=== PATIENT | female | born 1940 ===

== ENCOUNTER 2017-09-16 06:51 | Day surgery (SDC) | payer MEDICARE, OTHER ==
[2016-08-27 10:35] VITALS: BMI 32.8
[2017-09-16 07:53] VITALS: TEMP 97
--- NOTE | 2017-09-16 08:20 | CP.SDSHP ---
Same Day Surgery H & P - History Proposed Procedure: COLONSCOPY Pre-Op Diagnosis: SEE NOTES - Previous Medical/Surgical History Cardiac: Hypertension, ASHD/CAD Endocrine/Metabolic: Diabetes, Other Neuro: Backaches Misc: Other Pain: 4.Moderate Pain - Allergies Allergies: Allergies No Known Allergies Allergy (Verified 09/16/17 07:22) - Physical Exam General Appearance: N Vital Signs: Vital Signs 09/16/17 07:10 Temperature 97 F L Pulse Rate 70 Respiratory 20 Rate Blood Pressure 158/78 H O2 Sat by Pulse 97 Oximetry Mental Status: Alert & Oriented x3 Neuro: WNL Heart: Other Lungs: WNL GI: Other - {Optional Preform as Required} Breast: WNL Abdomen: Other Rectal: Other Integument: WNL : WNL ENT: WNL - Impression Pt. Evaluated Today:Candidate for Anesthesia & Procedure: Yes - Date & Time Time: 08:20 Short Stay Discharge - Short Stay Discharge Admitting Diagnosis/Reason for Visit: DIARRHEA Disposition: HOME/ ROUTINE
[2017-09-16] MEDS ORDERED: Propofol 10 mg/ml Inj (20 ML) ONE (08:21)
[2017-09-16] MEDS ORDERED: Lactated Ringer's 500 ML IV SCH (08:30)
[2017-09-16] MEDS ORDERED: Ciprofloxacin 400mg/200ml D5W 400 MG/200 ML BAG IVPB STA (08:35)
[2017-09-16] MEDS ORDERED: Belladonna-Phenobarbital PO ONE (08:50)
[2017-09-16 08:51] VITALS: PULSE 62
[2017-09-16 11:22] VITALS: RESP 20; O2SAT 100
[2017-09-16 11:30] VITALS: BP 140/78
== END 2017-09-16 11:30 | disposition home or self-care (01) ==
LOC: C.ENDO 06:51
PROVIDERS: ATTEND Specialist
DX: K57.90 Diverticulosis of intestine, part unspecified, without perforation or abscess without bleeding (principal); K64.8 Other hemorrhoids
CPT/HCPCS: 45380; 82948; 88305; J0744; J2704; J3010; J7120

== ENCOUNTER 2018-11-13 08:21 | Day surgery (SDC) | payer MEDICARE, OTHER ==
[2018-11-13 09:12] VITALS: BMI 32.9
[2018-11-13] MEDS ORDERED: Propofol 10 mg/ml Inj (20 ML) ONE ×2 (09:55→09:56)
[2018-11-13] MEDS ORDERED: Midazolam 2 MG/2 ML VIAL ONE (09:56)
--- NOTE | 2018-11-13 10:08 | CP.SDSHP ---
Same Day Surgery H & P - History Proposed Procedure: COLONSCOPY Pre-Op Diagnosis: SEE NOTES - Previous Medical/Surgical History Cardiac: ASHD/CAD Endocrine/Metabolic: Diabetes Neuro: Backaches Misc: Other Pain: 4.Moderate Pain Previous Surgical History: COLON SX. /COLON CA - Allergies Allergies: Allergies No Known Allergies Allergy (Verified 11/13/18 09:12) - Physical Exam General Appearance: N Vital Signs: Vital Signs 11/13/18 08:54 Temperature 98.2 F Pulse Rate 78 Respiratory 16 Rate Blood Pressure 123/62 O2 Sat by Pulse 96 Oximetry Mental Status: Alert & Oriented x3 Neuro: WNL Heart: Other Lungs: WNL GI: Other - {Optional Preform as Required} Breast: WNL Abdomen: Other Rectal: Other Integument: WNL : WNL Ortho: Other ENT: WNL - Impression Pt. Evaluated Today:Candidate for Anesthesia & Procedure: Yes - Date & Time Time: 10:08 Short Stay Discharge - Short Stay Discharge Admitting Diagnosis/Reason for Visit: PERSONAL HISTORY OF MALIGNANT NEOPLASM OF LARGE IN Disposition: HOME/ ROUTINE
[2018-11-13] MEDS ORDERED: Lactated Ringer's 1,000 ML IV ONE (10:10)
[2018-11-13] MEDS ORDERED: Belladonna-Phenobarbital PO STA (10:11)
[2018-11-13 10:38] VITALS: TEMP 98.4
[2018-11-13 11:05] VITALS: O2SAT 97
[2018-11-13] MEDS ORDERED: Belladonna-Phenobarbital PO ONE (11:30)
[2018-11-13 13:04] VITALS: BP 100/55; PULSE 78; RESP 21
== END 2018-11-13 13:00 | disposition home or self-care (01) ==
LOC: C.ENDO 08:21
PROVIDERS: ATTEND Specialist
DX: Z12.11 Encounter for screening for malignant neoplasm of colon (principal); Z85.038 Personal history of other malignant neoplasm of large intestine; D12.2 Benign neoplasm of ascending colon; D12.5 Benign neoplasm of sigmoid colon; K57.30 Diverticulosis of large intestine without perforation or abscess without bleeding; K64.9 Unspecified hemorrhoids
CPT/HCPCS: 45380; 82948; 88305; J2001; J2250; J2704; J7120